=== PATIENT | male | born 1960 | race Caucasian/White ===

== ENCOUNTER 2016-08-20 07:17 | Day surgery (SDC) | payer BC, OTHER ==
--- NOTE | ~2016-08-20 | EGD ---
EGD REPORT [facility] [address] [address] NAME: GIOVANA SPARKS : 56 STATUS : REG [facility] [place] PAT#: [id number] AGE: 56 ADM/REG DATE : 08/20/16 MR#: [id number] REPORT SERV DATE: 08/20/16 DICTATED BY: KENNEY KAYE DATE: 08/20/16 REPORT STATUS : Draft TRANSCRIBED BY: [employer] DATE: 08/20/16 [facility] Center Patient Name: Giovana Sparks Date of : 1960 Attending MD: KENNEY KAYE MD Procedure Date No Time: 08/20/2016 Procedure: Flexible Sigmoidoscopy Indications: Hematochezia Medicines: Propofol per Anesthesia Complications: No immediate complications. Procedure: Pre-Anesthesia Assessment: - ASA Grade Assessment: II - A patient with mild systemic disease. After obtaining informed consent, the endoscope was passed under direct vision. Throughout the procedure, the patient's blood pressure, pulse, and oxygen saturations were monitored continuously. The GIF [id number] was introduced through the anus and advanced to the sigmoid colon. The flexible sigmoidoscopy was accomplished without difficulty. The patient tolerated the procedure well. The quality of the bowel preparation was good. Findings: Sigmoidoscopy up to 30 cm was normal other than internal hemorrhoids. Internal hemorrhoids were found during retroflexion and were Grade II (internal hemorrhoids that prolapse but reduce spontaneously). Two bands were successfully placed. There was no bleeding during the procedure. Total of two bands were placed in the rectum to treat the hemorrhoids. Impression: - The entire examined colon is normal. - Internal hemorrhoids. Banded. Recommendation: - Discharge patient to home (ambulatory). - Return to my office in 3 weeks. - Regular diet. Procedure Code(s): --- Professional --- 34375, Hemorrhoidectomy, internal, by rubber band ligation(s) Diagnosis Code(s): --- Professional --- K64.1, Second degree hemorrhoids K92.1, Melena EGD REPORT [facility] [address] [facility] [place] [address] NAME: GIOVANA SPARKS : 56 STATUS : REG [facility] [place] PAT#: [id number] AGE: 56 ADM/REG DATE : 08/20/16 MR#: [id number] REPORT SERV DATE: 08/20/16 DICTATED BY: KENNEY KAYE. DATE: 08/20/16 REPORT STATUS : Draft TRANSCRIBED BY: [employer] DATE: 08/20/16 CPT copyright 2013 [employer]. All rights reserved. The codes documented in this report are preliminary and upon pizza delivery driver review may be revised to meet current compliance requirements. Kenney Kaye MD KENNEY KAYE MD 08/20/2016 8:48 AM This report has been signed electronically. Number of Addenda: 0 Note Initiated On: 08/20/2016 8:26 AM Scope Withdrawal Time 0 hours 0 minutes 0 seconds [address] [place] [address]
[~2016-08-20 07:17] MED LIST: COZ25 PO; HYZAAR 100/25 T1 TAB PO; KLOR-CON 1010 MEQ PO; ZANTAC150 MG PO
== END 2016-08-20 23:59 | disposition home health service (06) ==
LOC: DMU 07:17
PROVIDERS: Internal Medicine Gastroenterology
PROC: 06BY0ZC Excision of Hemorrhoidal Plexus, Open Approach (ICD-10-PCS; principal; 2016-08-20 10:00)
DX: K64.1 Second degree hemorrhoids (principal); I10 Essential (primary) hypertension; M19.90 Unspecified osteoarthritis, unspecified site; Z86.010 Personal history of colon polyps; Z79.899 Other long term (current) drug therapy; Z98.890 Other specified postprocedural states